=== PATIENT | female | born 1980 | race Caucasian/White ===

== ENCOUNTER 2025-08-03 13:34 | Outpatient (AMB) | payer OTHER, SELFPAY ==
--- NOTE | 2025-08-03 13:36 | A.OFFPC_ITS ---
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 Accompanied by: Self / Same As Patient Allergies acetaminophen (From Percocet) Adverse Reaction (Intermediate, Verified 08/03/25 13:36) shakiness, edginess hydralazine Adverse Reaction (Intermediate, Verified 08/03/25 13:36) tachycardia, anxiety oxycodone (From Percocet) Adverse Reaction (Intermediate, Verified 08/03/25 13:36) shakiness, edginess Medication List - Last Reconciled 08/03/25 by Brea Trotter MD hydrochlorothiazide 25 - 50 mg PO DAILY levothyroxine (Synthroid) mcg PO DAILY liothyronine 10 mcg PO BID losartan 50 mg PO DAILY Tobacco use date assessed: 08/03/25 Dental Screening Dental Screen Date: 08/03/25 Did you have a dental visit in the last 12 months?: Yes Did you have a dental problem in the last 6 months where you did not have access to dental care?: No Was dental information given to patient?: Patient has dentist HPI HPI Comments History of Present Illness Details The patient is a 44-year-old female presenting to re-establish care and to discuss ongoing medical issues. Reports a new thyroid lesion, right hip pain, and a shingles outbreak. Thyroid Lesion: The patient has a history of thyroid cancer and is without a thyroid. A recent ultrasound identified a new mass, and a subsequent CT scan with contrast showed a 1.2 x 1.9 x 1.9 cm circumscribed mass in the right side of her neck, lateral to the larynx. The patient reports two prior biopsies were performed, but the cytology reports were inconclusive due to insufficient material. She is seeking guidance and a second opinion, possibly at [facility]. Right Hip Pain: The patient reports right-sided hip pain that has been ongoing for months without any inciting trauma, starting in the gluteal area. A back and hip x-ray were performed; the hip x-ray was normal, while the back x-ray showed mild degenerative changes.. The patient has been self-treating with her mother's meloxicam 15 mg once daily and Aleve, which she reports has provided relief. Herpes Zoster: The patient reports the onset of a recurrent shingles outbreak starting yesterday, located on her lower back, which she associates with stress. Health Maintenance: pt is due for colonoscopy Social History: - The patient reports experiencing stres s related to her health issues Diagnostic Results: - CT Scan (neck with contrast): Showed a 1.2 x 1.9 x 1.9 cm circumscribed mass in the right side of the neck, lateral to the larynx. - Cytology (thyroid biopsy): Reported as material insufficient for diagnosis. - Lab Results ([facility]): Creatinine was 1.06 and GFR was 66. - X-Ray (back): Showed mild degenerative changes - X-Ray (hip): Normal. Review of Systems - Endocrine: per hpi - Musculoskeletal: Reports right-sided h ip and gluteal pain for several months. - Dermatologic: Reports an active herpes zoster outbreak on the lower back since yesterday. - Psychological: Reports increased stres s. Physical Exam - Constitutional: Patient is alert and o riented. - Cardiovascular: Heart sounds are amy l with a soft murmur. - Respiratory: Lungs are clear to auscul tation bilaterally. - Musculoskeletal: There is tenderness t o palpation of the right gluteal area. - Musculoskeletal: Range of motion of th e right hip is full and non-painful with rotation. Assessment and Plan 1. Thyroid lesion/History of Thyroid Can cer - Given the patient's history and two in conclusive biopsies of a new lesion, the patient desires a second opinion. - She is advised to proceed with seeking an evaluation - She will continue to see her current e ndocrinologist until she is established there. 2. Right Hip Pain - The pain is likely radicular in nature , originating from the lower back. - The patient is advised to discontinue use of her mother's meloxicam and other NSAIDs due to risk of kidney injury, especially given her use of losartan and HCTZ. - A referral for physical therapy at [facility] per patient's preference will be placed. - The patient is counseled that use of i ce and topical lidocaine is appropriate. 3. HTN - The patient's GFR is 66, and she has b een taking NSAIDs (meloxicam, Aleve) while on hydrochlorothiazide and losartan. - She has been counseled to cease all NS AID use. - A repeat basic metabolic profile will be ordered to recheck kidney function, and a urinalysis will be ordered to check for proteinuria. 4. Herpes Zoster - The patient has a recurrent, active sh ingles outbreak on her lower back that started yesterday, likely triggered by stress. - A prescription for Valtrex will be crystal dacosta. 5. Health Maintenance/Re-establishment o f Care - A referral will be placed for a colono scopy. - Follow up in 3-4 months or sooner if n eeded Discussion Notes I discussed with the patient her concerns regarding the indeterminate thyroid lesion and supported her decision to seek a second opinion for a definitive answer. We reviewed her right hip pain, and I explained that there is some element of radiation from her back and that physical therapy would be the best next step. I strongly advised her to stop taking her mother's meloxicam and any other NSAIDs, explaining the risk of kidney damage, especially since she takes blood pressure medications. We will recheck her kidney function with labs. We discussed her active shingles outbreak, its relation to stress, and the plan to prescribe Valtrex. We also arranged a referral for a colonoscopy and discussed plans for a follow-up visit for a physical. Patient Instructions . - Stop taking meloxicam, Aleve, or any o ther anti-inflammatory pain medications like ibuprofen. - For your hip pain, you can use ice pac ks and the roll-on lidocaine you have. - Please go to one of the lab locations provided to have your blood and urine tests done to check your kidney function. - I will send a prescription for Valtrex to your pharmacy for the shingles. - I am sending a referral to physical addison graham at [facility] in [place]. Please call them to schedule an appointment. - I will also send a referral for you to get a colonoscopy. [facility] Medical History (Updated 08/03/25 @ 17:36 by Brea Trotter MD) Lower back pain Right hip pain Secondary amenorrhea Impaired fasting glucose Kommerell's diverticulum Hypothyroidism Papillary thyroid carcinoma MARIELA (obstructive sleep apnea) Primary hypertension Surgical History (Updated 08/03/25 @ 13:11 by Brea Trotter MD) History of cholecystectomy H/O thyroidectomy H/O: hysterectomy Family History (Updated 08/03/25 @ 13:18 by Brea Trotter MD) Paternal Grandfather Liver cancer Paternal Grandmother Diabetes mellitus Primary hypertension Father Alcoholism CHF (congestive heart failure) Primary hypertension Prostate cancer Kommerell's diverticulum Mother Alcoholism Primary hypertension Social History Housing: House Patient Tobacco Use Status: Former Tobacco user e-Cigarette/Vaping Use: Never Used service: No Current occupational status: employed Current occupation: [place] [employer] Questionnaire AUDIT C Alcohol Use Questionnaire (AUDIT-C) 1. How often do you have a drink containing alcohol?: Never 3. How often do you have six or more drinks on one occasion?: Never Total Score: 0 Physical exam (Primary Care) Vital Signs: Last Vital Signs Temp 97.1 F 08/03/25 13:37 Pulse 76 08/03/25 13:37 Resp 16 08/03/25 13:37 BP 130/84 08/03/25 13:37 Pulse Ox 96 08/03/25 13:37 Oxygen Delivery Method Room Air 08/03/25 13:37 BMI result Body Mass Index 49.4 Tobacco/Smoking Status: Tobacco use Status Tobacco use date assessed 08/03/25 08/03/25 13:45 Patient Tobacco Use Status Former Tobacco user 08/03/25 13:45 e-Cigarette/Vaping Use Never Used 08/03/25 13:45 Coding Level of Care Code Est Pt Level 4 (84376) Complex EM visit Add On G2211 Diagnoses Primary hypertension I10 Papillary thyroid carcinoma C73 Postoperative hypothyroidism E89.0 Hypothyroidism type: postoperative Chronic left-sided low back pain, unspecified whether sciatica present M54.50; G89.29 Chronicity: chronic Back pain laterality: left Sciatica presence: unspecified whether sciatica present Right hip pain M25.551 Assessment & Plan Assessment & Plan (1) Primary hypertension: Code(s): I10 - Essential (primary) hypertension Category: Medical (2) Papillary thyroid carcinoma: Code(s): C73 - Malignant neoplasm of thyroid gland Category: Medical (3) Hypothyroidism: Code(s): E03.9 - Hypothyroidism, unspecified Category: Medical Qualifiers: Hypothyroidism type: postoperative Qualified Code(s): E89.0 - Postprocedural hypothyroidism (4) Lower back pain: Code(s): M54.50 - Low back pain, unspecified Category: Medical Qualifiers: Chronicity: chronic Back pain laterality: left Sciatica presence: unspecified whether sciatica present Qualified Code(s): M54.50 - Low back pain, unspecified; G89.29 - Other chronic pain (5) Right hip pain: Code(s): M25.551 - Pain in right hip Category: Medical Plan - Discontinue all NSAIDs, including meloxicam and Aleve, immediately. - Order repeat Basic Metabolic Profile and a urinalysis to evaluate kidney function and check for protein. - Submit referral for physical therapy at [facility] in [place] for right hip/back pain. - Prescribe Valtrex for the active herpes zoster outbreak. - Place a referral for a colonoscopy. Orders: Orders Microalbumin, Random (w Creat) Today I10 - Essential (primary) hypertension Basic Metabolic Panel Today I10 - Essential (primary) hypertension PT Evaluation and Treatment Today M25.551 - Pain in right hip, M54.50 - Low back pain, unspecified Referrals Gastroenterology Referral Z12.11 - Encounter for screening for malignant neoplasm of colon Medications: New valacyclovir (Valtrex) 1,000 mg PO TID 21 tabs 0RF
[2025-08-03 13:37] VITALS: BP 130/84; PULSE 76; RESP 16; TEMP 36.2; O2SAT 96; BMI 49.4
--- OUTSIDE RECORDS SUMMARY | 2025-08-03 15:44 | XMS_ITS | Clinical Summary ---
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
== END 2025-08-03 14:42 | disposition home or self-care (01) ==
LOC: HO.HMCHD 13:35
PROVIDERS: PCP Internal Medicine; Visit Provider Internal Medicine
DX: I10 Essential (primary) hypertension (principal); C73 Malignant neoplasm of thyroid gland; E89.0 Postprocedural hypothyroidism; M54.50 Low back pain, unspecified; G89.29 Other chronic pain; M25.551 Pain in right hip